=== PATIENT | male | born 1990 | race Two or more races ===

== ENCOUNTER 2018-04-15 12:16 | Emergency (ER) | payer SELFPAY ==
[~2018-04-15] VITALS: Ht 175.3 cm; Wt 104.3 kg
[2018-04-15 12:25] VITALS: BP 152/97
[2018-04-15] MEDS ORDERED: Tetanus/Diptheria/Pertussis Vaccine 0.5ml Syr IM ONE (12:45)
--- NOTE | 2018-04-15 12:45 | Emergency Room Report ---
History of Present Illness General Chief Complaint: Animal Bite Source: Patient Present Illness HPI 27-year-old male with no significant pas dog bite times one hour. 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 Patient is reporting minimal pain 3 out of 10 on the right k, and has not taken any medication for pain. Patient does not know if the dog was immunized Patient is not up-to-date with his Tdap. denies chest pain, shortness of breath , palpitation and all other associated symptoms Allergies: Coded Allergies: No Known Allergies (Unverified , 04/15/18) Patient History Past Medical History: see triage record Past Surgical History: none Immunizations: other - tdap today Reviewed Nursing Documentation: PMH: Agreed; PSxH: Agreed Nursing Documentation-PMH Past Medical History: No Stated History Review of Systems All Other Systems: negative except mentioned in HPI Physical Exam Vital Signs Date Time Temp Pulse Resp B/P (MAP) Pulse Ox O2 Delivery O2 Flow Rate FiO2 04/15/18 12:24 98.1 96 15 152/97 96 Room Air Sp02 EP Interpretation: reviewed, normal General Appearance: normal inspection, well appearing, no apparent distress, alert Head: normocephalic, atraumatic Eyes: bilateral eye normal inspection, bilateral eye PERRL ENT: normal ENT inspection, normal pharynx Neck: normal inspection, supple Respiratory: normal inspection, no rhonchi, no wheezing Cardiovascular #1: normal inspection, no gallop, no murmur Gastrointestinal: normal inspection, soft Rectal: deferred Genitourinary: deferred Musculoskeletal: back normal, digits/nails normal, gait/station normal, normal range of motion, non-tender, no calf tenderness, tender - small abrasion post dog bite on right knee Neurologic: normal inspection, alert, oriented x3, responsive Psychiatric: normal inspection, judgement/insight normal, memory normal Skin: normal color, palpation normal, well hydrated, abrasions - right knee post dog bite Lymphatic: normal inspection, no adenopathy Medical Decision Making PA Attestation all diagnoses and treatment plans are reviewed and discussed with my supervising physician Dr. Loya Diagnostic Impression: Primary Impression: Dog bite of right knee Additional Impression: Abrasion, right knee, initial encounter ER Course 27-year-old male with no significant pas dog bite times one hour. 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 Patient is reporting minimal pain 3 out of 10 on the right k, and has not taken any medication for pain. Patient does not know if the dog was immunized Patient is not up-to-date with his Tdap. denies chest pain, shortness of breath , palpitation and all other associated symptoms Ddx considered but are not limited to infected dog bite, laceration secondary to dog bite, aberasion Vital signs: are WNL, pt. is afebrile H&PE are most consistent with noninfected abrasions secondary to dog bite ORDERS: Tdap, Augmentin, bactroban, wound clean ED INTERVENTIONS: Tdap and wound clean DISCHARGE: At this time pt. is stable for d/c to home. Will provide printed patient care instructions, and any necessary prescriptions. Care plan and follow up instructions have been discussed with the patient prior to discharge. Last Vital Signs Date Time Temp Pulse Resp B/P (MAP) Pulse Ox O2 Delivery O2 Flow Rate FiO2 04/15/18 12:24 98.1 96 15 152/97 96 Room Air Disposition: HOME, SELF-CARE Condition: Stable Patient Instructions: Animal Bite, [id number] Additional Instructions: take medication as directed, follow with a primary care provider Fe Jarrett Apr 15, 2018 12:45
[2018-04-15] MEDS ORDERED: BACTROBAN15 GM TOPIC (12:46)
[2018-04-15] MEDS ORDERED: AUGMENTIN 875-1 EAC1 ORAL (12:46)
[2018-04-15 12:50] VITALS: BP 130/98
== END 2018-04-15 13:05 | disposition home or self-care (01) ==
LOC: EMR 12:25
DX: S80.211A Abrasion, right knee, initial encounter (principal); W54.0XXA Bitten by dog, initial encounter; Y92.89 Other specified places as the place of occurrence of the external cause; Z23 Encounter for immunization
CPT/HCPCS: 90471; 90715; 99283

== ENCOUNTER 2018-06-18 13:32 | Emergency (ER) | payer OTHER ==
[~2018-06-18] VITALS: Ht 177.8 cm; Wt 104.3 kg
[~2018-06-18 13:32] MED LIST: AUGMENTIN 875-1 EAC1 ORAL; BACTROBAN15 GM TOPIC
[2018-06-18] MEDS ORDERED: NKM (13:36)
--- NOTE | 2018-06-18 13:42 | NUR ---
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 pt aao x4 and calm and cooperative. injury site warm to touch and slightly swallen. pt reported pt had surgery on Rt ankle in May, 2018 and there are metals inside.
[2018-06-18] MEDS ORDERED: IBUPROFEN600 MG ORAL (14:56)
--- NOTE | 2018-06-18 14:59 | NUR ---
Apply daniel wrap to pt rt ankle, crutches provided.pt stated he knows how to use the crutches because he was on crutches for a year.
[2018-06-18 15:10] VITALS: BP 154/82
--- NOTE | 2018-06-18 15:10 | NUR ---
ER DISCHARGE NOTE: Patient is cleared to be discharged per ERPA, pt is aox4, on room air, with stable vital signs. pt was given dc and prescription instructions, pt was able to verbalize understanding, pt id band removed by nurse. pt is able to ambulate with steady gait. pt took all belongings.
--- NOTE | 2018-06-18 22:23 | Emergency Room Report ---
History of Present Illness General Chief Complaint: Lower Extremity Injury Source: Patient Present Illness HPI The patient is a 27-year-old male presenting for right ankle pain. He states that he felt the ankle folded underneath him. Pain is a 5 out of 10 dull ache primarily to the outside of the right ankle. Worse with walking. He denies injury to the ankle before. He denies any numbness or tingling. He denies any other symptoms Allergies: Coded Allergies: No Known Allergies (Unverified , 04/15/18) Patient History Past Medical History: see triage record Pertinent Family History: none Reviewed Nursing Documentation: PMH: Agreed; PSxH: Agreed Nursing Documentation-PMH Past Medical History: No Stated History Review of Systems All Other Systems: negative except mentioned in HPI Physical Exam Vital Signs Date Time Temp Pulse Resp B/P (MAP) Pulse Ox O2 Delivery O2 Flow Rate FiO2 06/18/18 13:33 98.1 99 18 154/82 96 Room Air Sp02 EP Interpretation: reviewed, normal General Appearance: no apparent distress, alert, GCS 15, non-toxic Head: normocephalic, atraumatic Musculoskeletal: back normal, gait/station normal, normal range of motion, no calf tenderness, tender - R lateral mal Neurologic: alert, oriented x3, responsive, motor strength/tone normal, sensory intact, speech normal Psychiatric: judgement/insight normal, memory normal, mood/affect normal, no suicidal/homicidal ideation Skin: normal color, no rash, warm/dry, well hydrated Procedures Splinting Splinting : Consent: Verbal Location: R ankle Pre-Made Type: HERRERA wrap Pre-Proc Neuro Vasc Exam: normal Post-Proc Neuro Vasc Exam: normal Patient Tolerated: Well Complications: None Medical Decision Making PA Attestation Dr. Bernal is my supervising physician. Patient management was discussed with my supervising physician Diagnostic Impression: Primary Impression: Ankle sprain Qualified Codes: S93.401A - Sprain of unspecified ligament of right ankle, initial encounter ER Course The patient is a 27-year-old male presenting for right ankle pain. Physical exam: Vitals within normal limits. No apparent distress R ankle: There is tenderness to palpation and edema over the lateral malleolus. Limited active range of motion. Sensation intact to light touch. X-ray of the R ankle is unremarkable R ankle placed in HERRERA wrap and the patient is provided crutches. ER precautions are given. Patient given prescription for Motrin and will follow up with primary care physician. Other X-Ray Diagnostic Results Other X-Ray Diagnostic Results : X-Ray ordered: R ankle # of Views/Limited Vs Complete: 3 View, Complete Indication: Pain EP Interpretation: Yes PA Xray: Interpretation reviewed, by supervising MD, and agrees with findings. Interpretation: no dislocation, no soft tissue swelling, no fractures Impression: No acute disease Electronically Signed by: Eriberto Olson PA-C Last Vital Signs Date Time Temp Pulse Resp B/P (MAP) Pulse Ox O2 Delivery O2 Flow Rate FiO2 06/18/18 15:10 98.1 71 18 154/82 96 Room Air Status: improved Disposition: HOME, SELF-CARE Condition: Improved Scripts Ibuprofen* (MOTRIN*) 600 Mg Tablet 600 MG ORAL Q8H PRN for For Pain, #30 TAB 0 Refills Prov: ERIBERTO OLSON 06/18/18 Patient Instructions: Ankle Sprain Additional Instructions: I discussed my findings with the patient. All questions and concerns have been answered. Treatment and medication compliance have been addressed. I advised the patient that they need to follow up their orthopedic surgeon as soon as possible. Return to E[facility] if pain remains or worsens, numbness or tingling occurs , new rash is noticed, fever is noticed, or if needed for any reason. Patient verbalized understanding of discharge instructions. ERIBERTO OLSON Jun 18, 2018 22:23
--- NOTE | 2018-06-19 14:25 | Diagnostic Imaging Report ---
Indication: Pain right ankle ankle pain/trauma Comparison: None Findings: 3 views of the right ankle obtained. Bones are osteopenic. Extensive hardware fixation of the calcaneus demonstrated. Soft tissue swelling is present. IMPRESSION: No acute injury is appreciated. Previous calcaneal fracture surgically reduced. Soft tissue swelling, nonspecific
== END 2018-06-18 15:10 | disposition home or self-care (01) ==
LOC: EMR 14:42
DX: S93.401A Sprain of unspecified ligament of right ankle, initial encounter (principal); X58.XXXA Exposure to other specified factors, initial encounter; Y92.9 Unspecified place or not applicable
CPT/HCPCS: 99283

== ENCOUNTER 2019-07-21 10:18 | Emergency (ER) | payer MEDICAID, OTHER ==
[~2019-07-21] VITALS: Ht 177.8 cm; Wt 107.0 kg
[~2019-07-21 10:18] MED LIST changes: +IBUPROFEN600 MG ORAL; +NKM
[2019-07-21] MEDS ORDERED: high cholesterol (10:26)
[2019-07-21] MEDS ORDERED: htn (10:26)
[2019-07-21 10:34] VITALS: BP 146/90
[2019-07-21 10:54] VITALS: BP 142/87
--- NOTE | 2019-07-21 11:30 | Emergency Room Report ---
History of Present Illness General Chief Complaint: Earache Source: Patient Present Illness HPI 28-year-old male presents ED for evaluation of ear pain. Notes bilateral ear pain left worse than right since Tuesday. Also feels congested. Denies any runny nose or cough. Denies fevers or chills. Denies sick contacts or recent travel. No other aggravating relieving factors. Denies any other associated symptoms COVID-19 risk:Contact w/high r: No COVID-19 risk:Travel to [place]: No Has patient experienced wood: No Allergies: Coded Allergies: No Known Allergies (Unverified , 04/15/18) Patient History Past Medical History: HTN Past Surgical History: none Pertinent Family History: none Social History: Denies: smoking, alcohol use, drug use Immunizations: UTD Reviewed Nursing Documentation: PMH: Agreed; PSxH: Agreed Nursing Documentation-PMH Past Medical History: No History, Except For Hx Cardiac Problems: No - thorn calcaneus right in 2018 Hx Hypertension: Yes Review of Systems All Other Systems: negative except mentioned in HPI Physical Exam Vital Signs Date Time Temp Pulse Resp B/P (MAP) Pulse Ox O2 Delivery O2 Flow Rate FiO2 07/21/19 10:23 97.9 83 16 152/91 (111) 96 Room Air Sp02 EP Interpretation: reviewed, normal General Appearance: no apparent distress, alert, GCS 15, non-toxic Head: normocephalic, atraumatic Eyes: bilateral eye normal inspection, bilateral eye PERRL ENT: hearing grossly normal, normal pharynx, no angioedema, normal voice Neck: full range of motion, supple/symm/no masses Respiratory: chest non-tender, lungs clear, normal breath sounds, speaking full sentences Cardiovascular #1: regular rate, rhythm, no edema Cardiovascular #2: 2+ carotid (R), 2+ carotid (L), 2+ radial (R), 2+ radial (L) , 2+ dorsalis pedis (R), 2+ dorsalis pedis (L) Gastrointestinal: normal bowel sounds, non tender, soft, non-distended, no guarding, no rebound Rectal: deferred Genitourinary: normal inspection, no CVA tenderness Musculoskeletal: back normal, normal range of motion, gait/station normal, non- tender Neurologic: alert, motor strength/tone normal, oriented x3, sensory intact, responsive, speech normal Psychiatric: judgement/insight normal, memory normal, mood/affect normal, no suicidal/homicidal ideation Reflexes: 3+ bicep (R), 3+ bicep (L), 3+ tricep (R), 3+ tricep (L), 3+ knee (R) , 3+ knee (L) Lymphatic: no adenopathy Medical Decision Making Diagnostic Impression: Primary Impression: Upper respiratory infection Qualified Codes: J06.9 - Acute upper respiratory infection, unspecified ER Course Hospital Course 28 yo M presents with bilateral ear pain, congestion Differential diagnoses include: URI, pharyngitis, otitis media, asthma Clinical course Patient placed on stretcher. After initial history, physical exam reveals a male in no acute distress. Bilateral TM unremarkable. No pharyngeal erythema. No tonsillar exudates. No lymphadenopathy. lungs clear. abdomen soft. And afebrile, nontoxic-appearing. Vitals stable. I discussed findings with patient. There is concern for coronavirus in the community. I recommend staying at home with self isolation for himself and any close contacts. Safe for discharge for close outpatient follow-up. I will provide referrals Diagnosis - URI Stable and discharged home. Instructed to followup with PMD. Return to ED if symptoms recur or worsen Last Vital Signs Date Time Temp Pulse Resp B/P (MAP) Pulse Ox O2 Delivery O2 Flow Rate FiO2 07/21/19 10:54 97.9 85 20 142/87 98 Room Air Status: improved Disposition: HOME, SELF-CARE Condition: Stable Referrals: [facility] Patient Instructions: Upper Respiratory Infection, Adult, [id number] Additional Instructions: because of current coronavirus pandemic, we recommend that you go home and self- isolate for 14 days. also all close contacts need to self-isolate. Fermin Bernal MD Jul 21, 2019 11:30
== END 2019-07-21 10:56 | disposition home or self-care (01) ==
LOC: EMR 10:36
DX: J06.9 Acute upper respiratory infection, unspecified (principal); I10 Essential (primary) hypertension
CPT/HCPCS: 99281

== ENCOUNTER 2019-10-02 17:11 | Emergency (ER) | payer MEDICAID ==
[~2019-10-02] VITALS: Ht 177.8 cm; Wt 110.2 kg
[~2019-10-02 17:11] MED LIST changes: +high cholesterol; +htn
[2019-10-02 17:27] VITALS: BP 133/75
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
[2019-10-02] MEDS ORDERED: IBUPROFEN600 M1 ORAL (18:35)
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
[2019-10-02 18:55] VITALS: BP 133/75
== END 2019-10-02 18:45 | disposition home or self-care (01) ==
LOC: EMR 17:45
DX: S00.03XA Contusion of scalp, initial encounter (principal); S02.2XXA Fracture of nasal bones, initial encounter for closed fracture; I10 Essential (primary) hypertension; S06.9X1A Unspecified intracranial injury with loss of consciousness of 30 minutes or less, initial encounter; Y04.2XXA Assault by strike against or bumped into by another person, initial encounter; Y92.9 Unspecified place or not applicable; E78.5 Hyperlipidemia, unspecified; Z79.899 Other long term (current) drug therapy
CPT/HCPCS: 70450; 70486; Z7502; 99284

== ENCOUNTER 2020-02-21 12:00 | Emergency (ER) | payer MEDICAID ==
[~2020-02-21] VITALS: Ht 177.8 cm; Wt 113.4 kg
[~2020-02-21 12:00] MED LIST changes: +CYCLOBENZAPRINE10 MG ORAL; +IBUPROFEN600 M1 ORAL; +LIDODERM700 M1 TOPIC; +ROBAXIN-750750 MG PO
[2020-02-21 12:15] VITALS: BP 152/92
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
[2020-02-21] MEDS ORDERED: IBUPROFEN600 M1 ORAL (12:44)
[2020-02-21 12:50] VITALS: BP 152/92
--- NOTE | 2020-02-21 14:26 | Diagnostic Imaging Report ---
INDICATION: Wrist pain TECHNIQUE: XRAY Wrist Complete R frontal, oblique, and lateral views of the right wrist COMPARISON: None FINDINGS: Abnormal appearance of the scaphoid, with multifocal cystic changes. Joint spaces are maintained. Mild soft tissue swelling around the wrist. IMPRESSION: Abnormal appearance of the scaphoid, the appearance of which favors prior trauma or degenerative changes. However, in the setting of acute trauma, dedicated scaphoid radiographs or CT is recommended to exclude acute fracture.
== END 2020-02-21 12:50 | disposition home or self-care (01) ==
LOC: EMR 12:40
DX: S63.501A Unspecified sprain of right wrist, initial encounter (principal); I10 Essential (primary) hypertension; W17.89XA Other fall from one level to another, initial encounter; Y93.55 Activity, bike riding; Y92.9 Unspecified place or not applicable
CPT/HCPCS: 29125; 73110; Z7502; 99283